=== PATIENT | female | born 1965 | race Caucasian/White ===

== ENCOUNTER 2017-09-22 09:40 | Emergency (ER) | payer OTHER ==
[~2017-09-22] VITALS: Ht 170.2 cm; Wt 122.9 kg
[~2017-09-22 09:40] MED LIST: ACET325; ALBU90OI INH; ALBU90OI6 INH; AMOCLA875 PO; AMOX500 PO; Advil200 M1 PO; CHOL10002 PO; CITA20 PO; CLOBET30L TOP; CLON.5 PO; CLON1 PO; CLOT1SO; CYCL10 PO; Citrate Of Mag300 ML PO; DAYQUIL; DEXGUASY; DIHY334CH PO; DIPATR PO; DOXY100 PO; GUAI600T33; HYDACE5 PO; HYDGUAL120 PO; HYOS.125 SL; LEVO750 PO; LORA1 PO; Miralax17 GM PO; NAPR550 PO; NITR100CA PO; NYQUIL; ONDA4 PO; PARO20 PO; PARO30 PO; PROM25 PO; Prednisone20 MG PO; RXHYDACE PO; Senna-Docusate1 EACH PO; TRAZ50 PO
[2017-09-22 10:16] LABS: BASOPHILS ABSOLUTE AUTO 0.06 K/mm3 (0.00-0.23); BASOPHILS PERCENT AUTO 0 % (0-2); EOSINOPHILS ABSOLUTE AUTO 0.22 K/mm3 (0.00-0.68); EOSINOPHILS PERCENT AUTO 2 % (0-6); Hematocrit 46.5 % (33.0-51.0); Hemoglobin 15.4 g/dL (11.5-16.0); IMMATURE GRAN ABSOLUTE AUTO 0.06 K/mm3 (0.00-0.10); IMMATURE GRAN PERCENT AUTO 0 % (0-1); LYMPHOCYTES ABSOLUTE AUTO 4.24 K/mm3 (0.84-5.20); LYMPHOCYTES PERCENT AUTO 30 % (21-46); MONOCYTES ABSOLUTE AUTO 1.05 K/mm3 (0.16-1.47); MONOCYTES PERCENT AUTO 7 % (4-13); Mean Corpuscular HGB 28.8 pg (26.0-34.0); Mean Corpuscular HGB Conc 33.1 g/dL (31.5-36.5); Mean Corpuscular Volume 87 fL (80-100); Mean Platelet Volume 10.1 fL (9.1-12.4); NEUTROPHILS ABSOLUTE AUTO 8.48 K/mm3 (1.96-9.15); NEUTROPHILS PERCENT AUTO 60 % (41-73); Platelet Count 294 K/mm3 (150-400); RDW Standard Deviation 41.1 fL (35.1-46.3); Red Blood Cell Count 5.34 M/mm3 (3.80-5.20); White Blood Cell Count 14.11 K/mm3 (4.00-11.30)
[2017-09-22 10:39] LABS: Anion Gap 5 mmol/L (6-16); Blood Urea Nitrogen 8 mg/dL (8-24); Bun/Creatinine Ratio 11.1 (12.0-20.0); CO2, Blood 26 mmol/L (21-32); Calcium, Blood 8.5 mg/dL (8.5-10.1); Chloride, Blood 108 mmol/L (98-108); Creatinine, Blood 0.72 mg/dL (0.40-1.00); Glomerular Filtration Rate >60 (60-); Glucose, Blood 87 mg/dL (70-99); Potassium, Blood 3.9 mmol/L (3.5-5.5); Sodium, Blood 139 mmol/L (136-145); Troponin I <0.015 ng/mL (0.000-0.040)
== END 2017-09-22 11:47 | disposition home or self-care (01) ==
LOC: ER 09:40
PROVIDERS: Emergency Medicine
DX: R07.89 Other chest pain (principal); F41.9 Anxiety disorder, unspecified; Z79.899 Other long term (current) drug therapy; F32.9 Major depressive disorder, single episode, unspecified; F43.10 Post-traumatic stress disorder, unspecified; F17.210 Nicotine dependence, cigarettes, uncomplicated
CPT/HCPCS: 36415; 71046; 80048; 83880; 84484; 85025; 93005; 93010; 96360; 96361; 99283; J7030

== ENCOUNTER 2019-05-23 18:12 | Emergency (ER) | payer OTHER ==
[~2019-05-23] VITALS: Ht 170.2 cm; Wt 129.3 kg
[2019-05-23] MEDS ORDERED: Cortisporin Ear10 M1 (19:28)
[2019-05-23] MEDS ORDERED: TOPI25 PO (19:28)
[2019-05-23] MEDS ORDERED: HYDROCODONE-AC1 EAC1 PO (19:28)
[2019-05-23] MEDS ORDERED: Augmentin 875-1 EACH PO (19:29)
[2019-05-23] MEDS ORDERED: CLONAZEPAM1 MG PO (19:29)
[2019-05-23] MEDS ORDERED: DULERA 200 MCG/13 GM INH (19:29)
[2019-05-23] MEDS ORDERED: Cetirizine HCl10 MG PO (19:29)
[2019-05-23] MEDS ORDERED: SENNA LAXATIVE8.6 MG PO (19:29)
[2019-05-23] MEDS ORDERED: Zoloft100 MG PO (19:29)
[2019-05-23] MEDS ORDERED: PRAVASTATIN SOD20 MG PO (19:29)
[2019-05-23] MEDS ORDERED: QUETIAPINE FUMA25 MG PO (19:29)
[2019-05-23] MEDS ORDERED: VARE1 (19:30)
[2019-05-23] MEDS ORDERED: Aspir 8181 MG PO (19:30)
[2019-05-23] MEDS ORDERED: Keflex500 MG PO (20:15)
[2019-05-23] MEDS ORDERED: Bactrim Ds Tab1 EACH PO (20:15)
== END 2019-05-23 20:29 | disposition home or self-care (01) ==
LOC: ER 18:12
DX: L03.311 Cellulitis of abdominal wall (principal); L02.211 Cutaneous abscess of abdominal wall; E11.9 Type 2 diabetes mellitus without complications; F41.9 Anxiety disorder, unspecified; F32.9 Major depressive disorder, single episode, unspecified; F43.10 Post-traumatic stress disorder, unspecified; J44.9 Chronic obstructive pulmonary disease, unspecified; Z79.899 Other long term (current) drug therapy; Z79.82 Long term (current) use of aspirin; Z87.891 Personal history of nicotine dependence
CPT/HCPCS: 10061; 99283-25; A9270-GY

== ENCOUNTER → 2019-07-27 | Outpatient (CLI) | payer OTHER ==
[~2019-07-27] MED LIST changes: +Aspir 8181 MG PO; +Augmentin 875-1 EACH PO; +Bactrim Ds Tab1 EACH PO; +CLONAZEPAM1 MG PO; +Cetirizine HCl10 MG PO; +Cortisporin Ear10 M1; +DULERA 200 MCG/13 GM INH; +HYDROCODONE-AC1 EAC1 PO; +Keflex500 MG PO; +PRAVASTATIN SOD20 MG PO; +QUETIAPINE FUMA25 MG PO; +SENNA LAXATIVE8.6 MG PO; +TOPI25 PO; +VARE1; +Zoloft100 MG PO
[2019-07-27 19:13] LABS: U Amphetamine Screen Not Detected; U Barbituate Screen Not Detected; U Benzodiazapine Screen Not Detected; U Buprenorphine Screen Not Detected; U Cannabinoids Screen DETECTED; U Cocaine Screen Not Detected; U Methadone Screen Not Detected; U Methamphetamine Screen Not Detected; U Opiates Screen Not Detected; U Oxycodone Screen Not Detected; U Phencyclidine Screen Not Detected; U Propoxyphene Screen Not Detected
== END | disposition home or self-care (01) ==
LOC: LAB SHORT 15:00 → LAB 15:00
PROVIDERS: Psychiatry & Neurology Psychiatry
DX: F41.0 Panic disorder [episodic paroxysmal anxiety] (principal)

== ENCOUNTER 2020-07-04 16:30 | Emergency (ER) | payer OTHER ==
[~2020-07-04] VITALS: Ht 170.2 cm; Wt 125.2 kg
[2020-07-04 17:33] LABS: Hematocrit 48.4 % (33.0-51.0); Hemoglobin 15.9 g/dL (11.5-16.0); Mean Corpuscular HGB Conc 32.9 g/dL (31.5-36.5); Mean Corpuscular Volume 88 fL (80-100); Mean Platelet Volume 9.8 fL (9.1-12.4); Platelet Count 259 K/mm3 (150-400); RDW Coefficient Variation 12.9 % (11.7-14.2); Red Blood Cell Count 5.49 M/mm3 (3.80-5.20); White Blood Cell Count 15.78 K/mm3 (4.00-11.30)
[2020-07-04 17:52] LABS: Alanine Aminotransfer (ALT/SGP 46 U/L (12-78); Albumin, Blood 3.6 g/dL (3.4-5.0); Alk Phos 78 U/L (50-136); Anion Gap 6 mmol/L (6-16); Aspartate Aminotrans (AST/SGOT 12 U/L (12-37); BASOPHILS PERCENT MAN 0 % (0-2); Bilirubin, Total 0.3 mg/dL (0.1-1.0); Blood Urea Nitrogen 13 mg/dL (8-24); Bun/Creatinine Ratio 16.7 (12.0-20.0); CO2, Blood 26 mmol/L (21-32); Calcium, Blood 8.7 mg/dL (8.5-10.1); Chloride, Blood 106 mmol/L (98-108); Creatinine, Blood 0.78 mg/dL (0.40-1.00); EOSINOPHILS ABSOLUTE MAN 0.47 K/mm3 (0.00-0.68); EOSINOPHILS PERCENT MAN 3 % (0-6); Globulin, Blood 3.6 g/dL (2.2-4.0); Glomerular Filtration Rate >60 (60-); Glucose, Blood 81 mg/dL (70-99); LYMPHOCYTES % ATYPICAL MANUAL 1 % (0-0); LYMPHOCYTES ABSOLUTE MAN 5.52 K/mm3 (0.84-5.20); LYMPHOCYTES PERCENT MAN 34 % (21-46); MONOCYTES PERCENT MAN 7 % (4-13); NEUTROPHILS ABSOLUTE MAN 8.67 K/mm3 (1.96-9.15); Potassium, Blood 3.9 mmol/L (3.5-5.5); SEG NEUTROPHILS PERCENT MAN 55 % (41-73); Sodium, Blood 138 mmol/L (136-145); TOTAL CELLS COUNTED 100; Total Protein, Blood 7.2 g/dL (6.4-8.2)
[2020-07-04 21:01] LABS: Source, Urine Clean Catch
[2020-07-04 21:08] LABS: Bilirubin, Urine Neg (Neg); Blood, Urine 1+ (Neg); Glucose Qualitative, Urine Neg (Neg); Ketones, Urine Neg (Neg); Leukocyte Esterase, Urine 1+ (Neg); Nitrite, Urine Neg (Neg); Protein, Urine 1+ (Neg); Urobilinogen, Urine NORM (Normal)
[2020-07-04 21:13] LABS: Appearance, Urine Clear (Clear); Color, Urine Yellow (P-Yellow)
[2020-07-04 21:14] LABS: Bacteria Few /hpf; Red Blood Cells, Urine Rare /hpf (0-2); White Blood Cells, Urine 0-2 /hpf (0-5)
[2020-07-04 21:15] LABS: Squamous Epithelial Cells Mod /hpf (Few)
== END 2020-07-04 22:46 | disposition left against medical advice (07) ==
LOC: ER 16:30
PROVIDERS: Physician Assistant
DX: R10.11 Right upper quadrant pain (principal); R00.2 Palpitations; R11.0 Nausea; K59.00 Constipation, unspecified; Z79.82 Long term (current) use of aspirin; Z79.899 Other long term (current) drug therapy; Z87.891 Personal history of nicotine dependence
CPT/HCPCS: 36415; 74177; 80053; 81001; 83690; 85025; 87086; 99284-25; Q9967